=== PATIENT | male | born 1985 | race African-American/Black ===

== ENCOUNTER 2016-06-02 06:32 | Emergency (ER) | payer OTHER ==
[~2016-06-02 06:32] MED LIST: /ACETCOD2T PO; /PREG50CA PO; AMBI12.52 PO; ARTHTAB4 PO; CELE10TA PO; EMLA2.5C TOP; GABA250S PO; GABA300C2 PO; IBUP80TA PO; LIDO1DIS2 TD; LIDO1DIS2 TOP; LIDO2.5C17 EXT; LYRI75CA PO; META800T82 PO; NEUR300C PO; No Home Medications; PERC7.5T PO; SERO50TA PO; TIZA4TAB3 PO; TOPA25TA PO; VIST25CA PO
--- NOTE | 2016-06-02 07:30 | REPUSA ---
CLINICAL HISTORY: Head trauma. TECHNIQUE: Multiple axial brain CT scan sections were obtained from base to vertex without contrast a dministration. COMMENTS: There is no evidence of skull fracture. The study shows normal configuration of sella turcica. There are no intra or extra-axial collections. There is no mass effect or midline shift. There is no evidence of hematoma formation. No hydrocephal us is present. No abnormal calcifications are noted. No significant abnormalities are seen either in the posterior fossa or supratentorial compartment. The sinuses and mastoid air cells are patent. IMPRESSION: No change from the prior exam on 11/20/2012. No evidence of acute intracranial pathology. No intracranial hemorrhage or skull fracture. Thank you for your kind referral of this patient.
[2016-06-02] MEDS ORDERED: ONDANSETRON 4 MG TAB (S0181) As Ordered ONE (08:03)
[2016-06-02] MEDS ORDERED: ACETAMINOPHEN 325 MG TAB As Ordered ONE (08:03)
[2016-06-02] MEDS ORDERED: diphenhydrAMINE 25 MG CAP As Ordered ONE (08:03)
--- NOTE | 2016-06-02 08:14 | EDDOCDS ---
Physician Documentation [facility] Name: Jessica Bass Age: 31 yrs Sex: Male : 1985 Arrival Date: 06/02/2016 Time: 06:32 Bed 9 Private MD: Disposition: 06/02/16 07:48 Discharged to Home/Self Care. Impression: Contusion of unspecified part of head. - Condition is Stable. - Discharge Instructions: Concussion, Adult, [id number]. - Prescriptions for Fioricet 50- 300-40 mg Oral Capsule - take 1 capsule by ORAL route every 8 hours As needed MDD: 6 tabs; 10 capsule. - Medication Reconciliation, Local Pharmacy Hours form. - Follow up: Private Physician; When: Call to arrange an appointment; Reason: Recheck today's complaints. - Problem is new. - Symptoms have improved. Historical: - Allergies: Ibuprofen (Upset stomach); Tramadol HClInflames my stomach; - Home Meds: 1. none - PMHx: Anxiety; Chronic Back Pain r/t Spinal Injury; Depression; TBI; - PSHx: none; - Social history: Smoking status: Patient uses tobacco products, heavy tobacco smoker. No barriers to communication noted, The patient speaks fluent Lebanese, Speaks appropriately for age. - : The pt / caregiver states he / she is not on anticoagulants. Home medication list is obtained from the patient. - Exposure Risk Screening:: None identified. Vital Signs: 06/02 06:42 BP 150 / 78; Pulse 61; Resp 18; Temp 99.1(TE); Pulse Ox 100% on R/A; Weight 70.31 kg / nn1 155.01 lbs; Height 6 ft. 1 in. (185.42 cm); Pain 7/10; 07:58 BP 128 / 75; Pulse 64; Resp 18; Temp 98.0(O); Pulse Ox 100% on R/A; Pain 7/10; rn1 06:42 Body Mass Index 20.45 (70.31 kg, 185.42 cm) nn1 MDM: 06:57 Financial registration complete. hs2 06:57 [facility] Payment Agreement was scanned into [employer] and attached to record. hs2 07:00 CT Head Without Contrast Ordered. EDMS 07:47 Ondansetron 4 mg PO once ordered. fg 07:47 Acetaminophen Tablet 650 mg PO once ordered. fg 07:47 diphenhydrAMINE 25 mg PO once ordered. fg Administered Medications: 08:08 Drug: Ondansetron 4 mg [ondansetron HCl 4 mg tablet (1 tabs)] Route: PO; hs1 08:08 Drug: Acetaminophen 650 mg [acetaminophen 325 mg tablet (2 tabs)] Route: PO; hs1 08:08 Drug: diphenhydrAMINE 25 mg [diphenhydramine 25 mg capsule (1 caps)] Route: PO; hs1 Signatures: Dispatcher [employer] EDMT Ines Mathew RN RN hs1 James Holliday RN RN nn1 Donna Alex MD MD fg Stanton, Hillary, Reg Reg hs2 The chart was reviewed and I authenticate all verbal orders and agree with the evaluation and treatment provided.Attachments: 06:57 [facility] Payment Agreement hs2 MTDD
--- NOTE | 2016-06-02 08:14 | EDDOCDS ---
Nurse's Notes [facility] Name: Jessica Bass Age: 31 yrs Sex: Male : 1985 Arrival Date: 06/02/2016 Time: 06:32 Bed 9 Private MD: Diagnosis: Contusion of unspecified part of head Presentation: 06/02 06:37 Presenting complaint: Patient states: that at 1500 yesterday he was walking down steps nn1 and he hit head on ceiling. Patient reports his head began to bleed at that time, reports taking off scab at around 2000. States scab reappeared and he now has headache. Presenting complaint: Patient states: he was having dizzy spells last night at approximately 2300. This patient has no additional risk factors. Reports history of mild TBI. Adult Sepsis Screening: The patient does not have new or worsening altered mentation. Patient's respiratory rate is less than 22. Systolic blood pressure is greater than 100. Patient has a qSOFA score of 0- Negative Sepsis Screen. Suicide/Homicide risk assessment- the patient denies having any suicidal and/or homicidal ideations and does not present with any other emotional, behavioral or mental health complaints. 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 Transition of care: patient was not received from another setting of care. 06:37 Acuity: RAYMUNDO Level 3 nn1 06:37 Method Of Arrival: Walkin/Carried/Asstd nn1 Triage Assessment: 06:41 Headache History: Other Reports headache is similar to TBI. General: Appears in no nn1 apparent distress, comfortable, Behavior is appropriate for age, cooperative. Pain: Location: head Pain currently is 7 out of 10 on a pain scale. Quality of pain is described as shooting, throbbing, Pain began 12 hours ago Also complains of sleeplessness. HIV screening NA for this visit Offered previously. Neurological: Level of Consciousness is awake, alert, obeys commands, Oriented to person, place, time, Moves all extremities. Speech is normal. Respiratory: Airway is patent Respiratory effort is even, unlabored, Respiratory pattern is regular, symmetrical. Derm: Skin is pink, warm & dry. Historical: - Allergies: Ibuprofen (Upset stomach); Tramadol HClInflames my stomach; - Home Meds: 1. none - PMHx: Anxiety; Chronic Back Pain r/t Spinal Injury; Depression; TBI; - PSHx: none; - Social history: Smoking status: Patient uses tobacco products, heavy tobacco smoker. No barriers to communication noted, The patient speaks fluent Ivorian, Speaks appropriately for age. - : The pt / caregiver states he / she is not on anticoagulants. Home medication list is obtained from the patient. - Exposure Risk Screening:: None identified. Screenin:02 Screening information is obtained from the patient. Fall risk: No risks identified. tm5 Assistance ADL's: requires no assistance with activities of daily living. Abuse/DV Screen: The patient / caregiver reports he/she is: not in a situation that causes fear, pain or injury. Nutritional screening: No deficits noted. Advance Directives: There is no active DNR order. home support is adequate. Assessment: 07:41 General: Appears in no apparent distress, comfortable, Behavior is appropriate for age, hs1 cooperative. Pain: Location: headache Pain currently is 7 out of 10 on a pain scale. Pain: Quality of pain is described as aching, Pain began 1 day ago. Pain: Pain does not radiate. Also complains of no other associated symptoms. Derm: Skin is pink, warm & dry. normal. Injury Description: Abrasion sustained to scalp is scabbed. 08:09 Reassessment: Patient appears in no apparent distress at this time. Pt agreeable to hs1 discharge no needs noted. . Vital Signs: 06:42 BP 150 / 78; Pulse 61; Resp 18; Temp 99.1(TE); Pulse Ox 100% on R/A; Weight 70.31 kg; nn1 Height 6 ft. 1 in. (185.42 cm); Pain 7/10; 07:58 BP 128 / 75; Pulse 64; Resp 18; Temp 98.0(O); Pulse Ox 100% on R/A; Pain 7/10; rn1 06:42 Body Mass Index 20.45 (70.31 kg, 185.42 cm) nn1 Vitals: 06:40 Log In Time: June 02, 2016 at 06:34. nn1 ED Course: 06:33 Patient visited by Lida Chopra Reg. hs2 06:33 Patient moved to Waiting hs2 06:40 Triage Initiated nn1 06:44 Patient moved to 9 nn1 06:51 Leo King DO is Attending Physician. cs11 06:51 Patient visited by Leo King DO. cs11 06:57 [facility] Payment Agreement was scanned into [employer] and attached to record. hs2 07:[address] tm5 07:05 Patient visited by Jennifer Dick RN. tm5 07:[address] tm5 07:39 Patient visited by Ines Mathew RN. hs1 07:52 CT Head Without Contrast Returned. EDMS 08:09 No IV's were initiated during this patient's visit. No procedures done that require hs1 assistance. Administered Medications: 08:08 Drug: Ondansetron 4 mg [ondansetron HCl 4 mg tablet (1 tabs)] Route: PO; hs1 08:08 Drug: Acetaminophen 650 mg [acetaminophen 325 mg tablet (2 tabs)] Route: PO; hs1 08:08 Drug: diphenhydrAMINE 25 mg [diphenhydramine 25 mg capsule (1 caps)] Route: PO; hs1 Order Results: Radiology Order: CT Head Without Contrast Test: CT Head Without Contrast REASON FOR EXAMINATION: Trauma; ; CLINICAL HISTORY: Head trauma.; TECHNIQUE: Multiple axial brain CT scan sections were obtained from base to vertex without contrast a; dministration.; COMMENTS:; There is no evidence of skull fracture.; The study shows normal configuration of sella turcica. There are no intra or extra-axial collections.; There is no mass effect or midline shift. There is no evidence of hematoma formation. No hydrocephal; us is present. No abnormal calcifications are noted.; No significant abnormalities are seen either in the posterior fossa or supratentorial compartment.; The sinuses and mastoid air cells are patent.; IMPRESSION:; No change from the prior exam on 11/20/2012.; No evidence of acute intracranial pathology. No intracranial hemorrhage or skull fracture.; Thank you for your kind referral of this patient.; ; Outcome: 07:48 Discharge ordered by Provider. fg 08:10 Discharge Assessment: Patient awake, alert and oriented x 3. No cognitive and/or hs1 functional deficits noted. Patient verbalized understanding of disposition instructions. patient administered narcotics - no. The following High Risk Discharge criteria are identified: None. Discharged to home ambulatory, with friend. Condition: stable. Discharge instructions given to patient, Instructed on discharge instructions, follow up and referral plans. medication usage, Demonstrated understanding of instructions, medications, Pt was receptive of discharge instructions/ teaching. Prescriptions given X 1. CT Study completed. Property sent home with patient. 08:13 Patient left the ED. hs1 Signatures: Dispatcher [employer] EDVT Ines Mathew RN RN hs1 Leo King DO DO cs11 Krish Zaldivar rn1 James Holliday RN RN nn1 Donna Alex MD MD Lida Chopra, Reg Reg hs2 Jennifer Dick,RN RN tm5 MTDD
--- NOTE | 2016-06-04 09:14 | EDDOCDS ---
Nurse's Notes [facility] Name: Jessica Bass Age: 31 yrs Sex: Male : 1985 Arrival Date: 06/02/2016 Time: 06:32 Bed 9 Private MD: Diagnosis: Contusion of unspecified part of head Presentation: 06/02 06:37 Presenting complaint: Patient states: that at 1500 yesterday he was walking down steps nn1 and he hit head on ceiling. Patient reports his head began to bleed at that time, reports taking off scab at around 2000. States scab reappeared and he now has headache. Presenting complaint: Patient states: he was having dizzy spells last night at approximately 2300. This patient has no additional risk factors. Reports history of mild TBI. Adult Sepsis Screening: The patient does not have new or worsening altered mentation. Patient's respiratory rate is less than 22. Systolic blood pressure is greater than 100. Patient has a qSOFA score of 0- Negative Sepsis Screen. Suicide/Homicide risk assessment- the patient denies having any suicidal and/or homicidal ideations and does not present with any other emotional, behavioral or mental health complaints. 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 Transition of care: patient was not received from another setting of care. 06:37 Acuity: RAYMUNDO Level 3 nn1 06:37 Method Of Arrival: Walkin/Carried/Asstd nn1 Triage Assessment: 06:41 Headache History: Other Reports headache is similar to TBI. General: Appears in no nn1 apparent distress, comfortable, Behavior is appropriate for age, cooperative. Pain: Location: head Pain currently is 7 out of 10 on a pain scale. Quality of pain is described as shooting, throbbing, Pain began 12 hours ago Also complains of sleeplessness. HIV screening NA for this visit Offered previously. Neurological: Level of Consciousness is awake, alert, obeys commands, Oriented to person, place, time, Moves all extremities. Speech is normal. Respiratory: Airway is patent Respiratory effort is even, unlabored, Respiratory pattern is regular, symmetrical. Derm: Skin is pink, warm & dry. Historical: - Allergies: Ibuprofen (Upset stomach); Tramadol HClInflames my stomach; - Home Meds: 1. none - PMHx: Anxiety; Chronic Back Pain r/t Spinal Injury; Depression; TBI; - PSHx: none; - Social history: Smoking status: Patient uses tobacco products, heavy tobacco smoker. No barriers to communication noted, The patient speaks fluent Greek, Speaks appropriately for age. - : The pt / caregiver states he / she is not on anticoagulants. Home medication list is obtained from the patient. - Exposure Risk Screening:: None identified. Screenin:02 Screening information is obtained from the patient. Fall risk: No risks identified. tm5 Assistance ADL's: requires no assistance with activities of daily living. Abuse/DV Screen: The patient / caregiver reports he/she is: not in a situation that causes fear, pain or injury. Nutritional screening: No deficits noted. Advance Directives: There is no active DNR order. home support is adequate. Assessment: 07:41 General: Appears in no apparent distress, comfortable, Behavior is appropriate for age, hs1 cooperative. Pain: Location: headache Pain currently is 7 out of 10 on a pain scale. Pain: Quality of pain is described as aching, Pain began 1 day ago. Pain: Pain does not radiate. Also complains of no other associated symptoms. Derm: Skin is pink, warm & dry. normal. Injury Description: Abrasion sustained to scalp is scabbed. 08:09 Reassessment: Patient appears in no apparent distress at this time. Pt agreeable to hs1 discharge no needs noted. . Vital Signs: 06:42 BP 150 / 78; Pulse 61; Resp 18; Temp 99.1(TE); Pulse Ox 100% on R/A; Weight 70.31 kg; nn1 Height 6 ft. 1 in. (185.42 cm); Pain 7/10; 07:58 BP 128 / 75; Pulse 64; Resp 18; Temp 98.0(O); Pulse Ox 100% on R/A; Pain 7/10; rn1 06:42 Body Mass Index 20.45 (70.31 kg, 185.42 cm) nn1 Vitals: 06:40 Log In Time: June 02, 2016 at 06:34. nn1 ED Course: 06:33 Patient visited by Lida Chopra Reg. hs2 06:33 Patient moved to Waiting hs2 06:40 Triage Initiated nn1 06:44 Patient moved to 9 nn1 06:51 Leo King DO is Attending Physician. cs11 06:51 Patient visited by Leo King DO. cs11 06:57 [facility] Payment Agreement was scanned into [employer] and attached to record. hs2 07:[address] tm5 07:05 Patient visited by Jennifer Dick,MASON. tm5 07:[address]. tm5 07:39 Patient visited by Ines Mathew RN. hs1 07:52 CT Head Without Contrast Returned. EDMS 08:09 No IV's were initiated during this patient's visit. No procedures done that require hs1 assistance. 08:56 T-Sheet-- Draft Copy was scanned into [employer] and attached to record. [facility] 11:13 Radiology Report was scanned into [employer] and attached to record. gb Administered Medications: 08:08 Drug: Ondansetron 4 mg [ondansetron HCl 4 mg tablet (1 tabs)] Route: PO; hs1 08:08 Drug: Acetaminophen 650 mg [acetaminophen 325 mg tablet (2 tabs)] Route: PO; hs1 08:08 Drug: diphenhydrAMINE 25 mg [diphenhydramine 25 mg capsule (1 caps)] Route: PO; hs1 Order Results: Radiology Order: CT Head Without Contrast Test: CT Head Without Contrast REASON FOR EXAMINATION: Trauma; ; CLINICAL HISTORY: Head trauma.; TECHNIQUE: Multiple axial brain CT scan sections were obtained from base to vertex without contrast a; dministration.; COMMENTS:; There is no evidence of skull fracture.; The study shows normal configuration of sella turcica. There are no intra or extra-axial collections.; There is no mass effect or midline shift. There is no evidence of hematoma formation. No hydrocephal; us is present. No abnormal calcifications are noted.; No significant abnormalities are seen either in the posterior fossa or supratentorial compartment.; The sinuses and mastoid air cells are patent.; IMPRESSION:; No change from the prior exam on 11/20/2012.; No evidence of acute intracranial pathology. No intracranial hemorrhage or skull fracture.; Thank you for your kind referral of this patient.; ; Outcome: 07:48 Discharge ordered by Provider. fg 08:10 Discharge Assessment: Patient awake, alert and oriented x 3. No cognitive and/or hs1 functional deficits noted. Patient verbalized understanding of disposition instructions. patient administered narcotics - no. The following High Risk Discharge criteria are identified: None. Discharged to home ambulatory, with friend. Condition: stable. Discharge instructions given to patient, Instructed on discharge instructions, follow up and referral plans. medication usage, Demonstrated understanding of instructions, medications, Pt was receptive of discharge instructions/ teaching. Prescriptions given X 1. CT Study completed. Property sent home with patient. 08:13 Patient left the ED. hs1 Signatures: Dispatcher [employer] EDMS Maida Westfall, Reg Reg gb Ines Mathew RN RN hs1 Leo King, DO cs11 Krish Zaldivar rn1 James HollidayRN RN nn1 Donna Alex MD MD Lida Chopra, Reg Reg hs2 Khadijah Ponce TonyaRN RN tm5 Chart Complete [facility]
--- NOTE | 2016-06-04 09:14 | EDDOCDS ---
Physician Documentation [facility] Name: Jessica Bass Age: 31 yrs Sex: Male : 1985 Arrival Date: 06/02/2016 Time: 06:32 Bed 9 Private MD: Disposition: 06/02/16 07:48 Discharged to Home/Self Care. Impression: Contusion of unspecified part of head. - Condition is Stable. - Discharge Instructions: Concussion, Adult, [id number]. - Prescriptions for Fioricet 50- 300-40 mg Oral Capsule - take 1 capsule by ORAL route every 8 hours As needed MDD: 6 tabs; 10 capsule. - Medication Reconciliation, Local Pharmacy Hours form. - Follow up: Private Physician; When: Call to arrange an appointment; Reason: Recheck today's complaints. - Problem is new. - Symptoms have improved. Historical: - Allergies: Ibuprofen (Upset stomach); Tramadol HClInflames my stomach; - Home Meds: 1. none - PMHx: Anxiety; Chronic Back Pain r/t Spinal Injury; Depression; TBI; - PSHx: none; - Social history: Smoking status: Patient uses tobacco products, heavy tobacco smoker. No barriers to communication noted, The patient speaks fluent Wallisian, Speaks appropriately for age. - : The pt / caregiver states he / she is not on anticoagulants. Home medication list is obtained from the patient. - Exposure Risk Screening:: None identified. Vital Signs: 06/02 06:42 BP 150 / 78; Pulse 61; Resp 18; Temp 99.1(TE); Pulse Ox 100% on R/A; Weight 70.31 kg / nn1 155.01 lbs; Height 6 ft. 1 in. (185.42 cm); Pain 7/10; 07:58 BP 128 / 75; Pulse 64; Resp 18; Temp 98.0(O); Pulse Ox 100% on R/A; Pain 7/10; rn1 06:42 Body Mass Index 20.45 (70.31 kg, 185.42 cm) nn1 MDM: 06:57 Financial registration complete. hs2 06:57 [facility] Payment Agreement was scanned into [employer] and attached to record. hs2 07:00 CT Head Without Contrast Ordered. EDMS 07:47 Ondansetron 4 mg PO once ordered. fg 07:47 Acetaminophen Tablet 650 mg PO once ordered. fg 07:47 diphenhydrAMINE 25 mg PO once ordered. fg 08:56 T-Sheet-- Draft Copy was scanned into [employer] and attached to record. [facility] 11:13 Radiology Report was scanned into [employer] and attached to record. gb Administered Medications: 08:08 Drug: Ondansetron 4 mg [ondansetron HCl 4 mg tablet (1 tabs)] Route: PO; hs1 08:08 Drug: Acetaminophen 650 mg [acetaminophen 325 mg tablet (2 tabs)] Route: PO; hs1 08:08 Drug: diphenhydrAMINE 25 mg [diphenhydramine 25 mg capsule (1 caps)] Route: PO; hs1 Signatures: Dispatcher [employer] EDMS Maida Westfall, Reg Reg gb Ines Mathew RN RN hs1 James Holliday RN RN nn1 Donna Alex MD MD Lida Chopra, Reg Reg hs2 Khadijah Ponce The chart was reviewed and I authenticate all verbal orders and agree with the evaluation and treatment provided.Attachments: 06:57 [facility] Payment Agreement hs2 08:56 T-Sheet-- Draft Copy [facility] Chart Complete [facility]
--- NOTE | 2016-06-04 09:14 | EDDOCDS ---
Physician Documentation [facility] Name: Jessica Bass Age: 31 yrs Sex: Male : 1985 Arrival Date: 06/02/2016 Time: 06:32 Bed 9 Private MD: Disposition: 06/02/16 07:48 Discharged to Home/Self Care. Impression: Contusion of unspecified part of head. - Condition is Stable. - Discharge Instructions: Concussion, Adult, [id number]. - Prescriptions for Fioricet 50- 300-40 mg Oral Capsule - take 1 capsule by ORAL route every 8 hours As needed MDD: 6 tabs; 10 capsule. - Medication Reconciliation, Local Pharmacy Hours form. - Follow up: Private Physician; When: Call to arrange an appointment; Reason: Recheck today's complaints. - Problem is new. - Symptoms have improved. Historical: - Allergies: Ibuprofen (Upset stomach); Tramadol HClInflames my stomach; - Home Meds: 1. none - PMHx: Anxiety; Chronic Back Pain r/t Spinal Injury; Depression; TBI; - PSHx: none; - Social history: Smoking status: Patient uses tobacco products, heavy tobacco smoker. No barriers to communication noted, The patient speaks fluent Scottish, Speaks appropriately for age. - : The pt / caregiver states he / she is not on anticoagulants. Home medication list is obtained from the patient. - Exposure Risk Screening:: None identified. Vital Signs: 06/02 06:42 BP 150 / 78; Pulse 61; Resp 18; Temp 99.1(TE); Pulse Ox 100% on R/A; Weight 70.31 kg / nn1 155.01 lbs; Height 6 ft. 1 in. (185.42 cm); Pain 7/10; 07:58 BP 128 / 75; Pulse 64; Resp 18; Temp 98.0(O); Pulse Ox 100% on R/A; Pain 7/10; rn1 06:42 Body Mass Index 20.45 (70.31 kg, 185.42 cm) nn1 MDM: 06:57 Financial registration complete. hs2 06:57 [facility] Payment Agreement was scanned into [employer] and attached to record. hs2 07:00 CT Head Without Contrast Ordered. EDMS 07:47 Ondansetron 4 mg PO once ordered. fg 07:47 Acetaminophen Tablet 650 mg PO once ordered. fg 07:47 diphenhydrAMINE 25 mg PO once ordered. fg 08:56 T-Sheet-- Draft Copy was scanned into [employer] and attached to record. [facility] 11:13 Radiology Report was scanned into [employer] and attached to record. gb Administered Medications: 08:08 Drug: Ondansetron 4 mg [ondansetron HCl 4 mg tablet (1 tabs)] Route: PO; hs1 08:08 Drug: Acetaminophen 650 mg [acetaminophen 325 mg tablet (2 tabs)] Route: PO; hs1 08:08 Drug: diphenhydrAMINE 25 mg [diphenhydramine 25 mg capsule (1 caps)] Route: PO; hs1 Signatures: Dispatcher [employer] EDMS Maida Westfall, Reg Reg gb Ines Mathew RN RN hs1 James Holliday RN RN nn1 Donna Alex MD MD Lida Chopra, Reg Reg hs2 Khadijah Ponce The chart was reviewed and I authenticate all verbal orders and agree with the evaluation and treatment provided.Attachments: 06:57 [facility] Payment Agreement hs2 08:56 T-Sheet-- Draft Copy [facility] Chart Complete [facility]
== END 2016-06-02 08:13 | disposition home or self-care (01) ==
LOC: M ED 06:32
DX: S00.93XA Contusion of unspecified part of head, initial encounter (principal); W22.8XXA Striking against or struck by other objects, initial encounter; Y92.019 Unspecified place in single-family (private) house as the place of occurrence of the external cause; Y93.89 Activity, other specified; Y99.8 Other external cause status; F41.9 Anxiety disorder, unspecified; G89.29 Other chronic pain; F32.9 Major depressive disorder, single episode, unspecified; Z87.820 Personal history of traumatic brain injury; F17.200 Nicotine dependence, unspecified, uncomplicated; Z88.5 Allergy status to narcotic agent; Z88.6 Allergy status to analgesic agent

== ENCOUNTER 2016-07-04 13:38 | Emergency (ER) | payer OTHER ==
[~2016-07-04] VITALS: Ht 185.4 cm; Wt 70.3 kg
[2016-07-04 13:48] VITALS: BP 129/75
[2016-07-04] MEDS ORDERED: [UNRECOGNIZED DRUG - CODE] (13:52)
[2016-07-04] MEDS ORDERED: TYLE1TAB5 PO (13:52)
[2016-07-04] MEDS ORDERED: CLEO300C2 PO (14:38)
[2016-07-04] MEDS ORDERED: HYDR-3713 PO (14:39)
== END 2016-07-04 14:51 | disposition home or self-care (01) ==
LOC: M ED 14:49
DX: K08.9 Disorder of teeth and supporting structures, unspecified (principal); F17.210 Nicotine dependence, cigarettes, uncomplicated; Z88.6 Allergy status to analgesic agent; Z88.8 Allergy status to other drugs, medicaments and biological substances; Z79.899 Other long term (current) drug therapy; Z87.820 Personal history of traumatic brain injury; F41.9 Anxiety disorder, unspecified; F32.9 Major depressive disorder, single episode, unspecified

== ENCOUNTER 2016-09-22 13:56 | Emergency (ER) | payer OTHER ==
[~2016-09-22] VITALS: Ht 185.4 cm; Wt 68.9 kg
[~2016-09-22 13:56] MED LIST changes: +CLEO300C2 PO; +HYDR-3713 PO; +TYLE1TAB5 PO; +[UNRECOGNIZED DRUG - CODE]
[2016-09-22 13:57] VITALS: BP 123/76
[2016-09-22] MEDS ORDERED: GABA-283 PO (14:04)
[2016-09-22] MEDS ORDERED: NORCOTAB PO (14:28)
[2016-09-22] MEDS ORDERED: ROBA500T PO (14:30)
== END 2016-09-22 14:44 | disposition home or self-care (01) ==
LOC: M ED 14:41
DX: M50.80 Other cervical disc disorders, unspecified cervical region (principal); F41.9 Anxiety disorder, unspecified; F32.9 Major depressive disorder, single episode, unspecified; K52.9 Noninfective gastroenteritis and colitis, unspecified; Z87.820 Personal history of traumatic brain injury; Z88.5 Allergy status to narcotic agent; Z88.6 Allergy status to analgesic agent; Z79.899 Other long term (current) drug therapy

== ENCOUNTER 2016-10-08 16:11 | Emergency (ER) | payer OTHER ==
[~2016-10-08] VITALS: Ht 185.4 cm; Wt 70.3 kg
[~2016-10-08 16:11] MED LIST changes: +GABA-283 PO; +NORCOTAB PO; +ROBA500T PO
[2016-10-08 16:12] VITALS: BP 111/66
[2016-10-08] MEDS ORDERED: ZANA4TAB PO (17:06)
[2016-10-08] MEDS ORDERED: MEDR4PAK PO (17:06)
== END 2016-10-08 17:29 | disposition home or self-care (01) ==
LOC: M ED 17:18
DX: M54.9 Dorsalgia, unspecified (principal); G89.29 Other chronic pain

== ENCOUNTER 2016-11-25 15:59 | Emergency (ER) | payer OTHER ==
[~2016-11-25] VITALS: Ht 185.4 cm; Wt 62.0 kg
[2016-11-25 15:59] VITALS: BP 134/70
[~2016-11-25 15:59] MED LIST changes: +MEDR4PAK PO; +ZANA4TAB PO
[2016-11-25] MEDS ORDERED: AUGM875T28 PO (18:27)
[2016-11-25] MEDS ORDERED: NORCOTAB PO (18:27)
[2016-11-25] MEDS ORDERED: NORCO 5/325MG TABLET (BULK FOR ED) PO ONE (18:30)
[2017-03-13] MEDS ORDERED: NORC1TAB4 PO (18:19)
== END 2016-11-25 18:46 | disposition home or self-care (01) ==
LOC: M ED 15:59
DX: K02.9 Dental caries, unspecified (principal); F17.210 Nicotine dependence, cigarettes, uncomplicated; Z88.6 Allergy status to analgesic agent; Z88.5 Allergy status to narcotic agent

== ENCOUNTER 2017-01-26 11:09 | Emergency (ER) | payer OTHER ==
[~2017-01-26] VITALS: Ht 185.4 cm; Wt 68.2 kg
[2017-01-26 11:09] VITALS: BP 105/67
[~2017-01-26 11:09] MED LIST changes: +AUGM875T28 PO
[2017-01-26] MEDS ORDERED: CLEO300C2 PO (11:47)
[2017-01-26] MEDS ORDERED: NORCOTAB PO (11:47)
[2017-03-13] MEDS ORDERED: NORC1TAB4 PO (18:19)
== END 2017-01-26 11:56 | disposition home or self-care (01) ==
LOC: M ED 11:09
DX: K02.9 Dental caries, unspecified (principal); S02.5XXA Fracture of tooth (traumatic), initial encounter for closed fracture; X58.XXXA Exposure to other specified factors, initial encounter; Y92.89 Other specified places as the place of occurrence of the external cause; Y93.89 Activity, other specified; Y99.9 Unspecified external cause status

== ENCOUNTER 2017-02-09 13:24 | Emergency (ER) | payer OTHER ==
[~2017-02-09] VITALS: Ht 185.4 cm; Wt 68.2 kg
[2017-02-09] MEDS ORDERED: TYLE325T5 PO (14:04)
[2017-02-09] MEDS ORDERED: KETOROLAC 60 MG/2 ML VIAL (J1885) IM ONE (14:15)
[2017-02-09 14:33] VITALS: BP 137/76
[2017-02-10] MEDS ORDERED: HYDR-3713 PO (10:22)
[2017-03-13] MEDS ORDERED: NORC1TAB4 PO (18:19)
== END 2017-02-09 14:34 | disposition home or self-care (01) ==
LOC: M ED 13:24
DX: M54.2 Cervicalgia (principal); F41.9 Anxiety disorder, unspecified; F33.9 Major depressive disorder, recurrent, unspecified; K52.9 Noninfective gastroenteritis and colitis, unspecified; Z87.820 Personal history of traumatic brain injury; Z88.5 Allergy status to narcotic agent; Z88.8 Allergy status to other drugs, medicaments and biological substances; Z87.891 Personal history of nicotine dependence
CPT/HCPCS: 96372; 99282; J1885; J3360

== ENCOUNTER 2017-02-10 09:20 | Emergency (ER) | payer OTHER ==
[~2017-02-10] VITALS: Ht 185.4 cm; Wt 152.0 kg
[~2017-02-10 09:20] MED LIST changes: +TYLE325T5 PO
[2017-02-10] MEDS ORDERED: NORCO, ANEXSIA 5/325MG TABLET (HYDROcodone/ACETAMINOPHEN) PO ONE (09:45)
[2017-02-10] MEDS ORDERED: ONDANSETRON 4 MG ORAL DISINTEGRATING TAB (S0181) PO ONE (09:45)
[2017-02-10] MEDS ORDERED: HYDR-3713 PO (10:22)
[2017-02-10 10:51] VITALS: BP 105/63
--- NOTE | 2017-02-10 11:43 | REP ---
REASON: Neck pain. No history of trauma whatsoever has been given to me. No priors for comparison. Seven views were obtained. Multiple views of the cervical spine show some limitation of flexion and extension radiographically. Vertebra body height and alignment is within normal limits. Disc space height is symmetric throughout. The facet joints are well aligned bilaterally. The cervical lordotic curve is slightly accentuated. The intervertebral foramina are ample bilaterally and the neural canal is not encroached upon. There is no plain radiographic evidence of a fracture. IMPRESSION: Findings as described above. Correlate clinically for muscular spasm. The patient is cleared for CT of a fracture is of clinical concern. Signed by Kar Mendoza DO 02/10/2017 11:07 [facility]
[2017-03-13] MEDS ORDERED: NORC1TAB4 PO (18:19)
== END 2017-02-10 10:53 | disposition home or self-care (01) ==
LOC: M ED 09:20
DX: M54.2 Cervicalgia (principal); G89.29 Other chronic pain; Z87.891 Personal history of nicotine dependence

== ENCOUNTER 2017-02-19 10:27 | Emergency (ER) | payer OTHER ==
[~2017-02-19] VITALS: Ht 185.4 cm; Wt 68.2 kg
[2017-02-19 10:38] VITALS: BP 123/72
[2017-02-19] MEDS ORDERED: CLIN150C14 PO (11:04)
[2017-02-19] MEDS ORDERED: ACET30TAB PO (11:04)
[2017-03-13] MEDS ORDERED: NORC1TAB4 PO (18:19)
== END 2017-02-19 11:10 | disposition home or self-care (01) ==
LOC: M ED 10:27
DX: K04.7 Periapical abscess without sinus (principal); K03.81 Cracked tooth; Z88.6 Allergy status to analgesic agent; Z88.8 Allergy status to other drugs, medicaments and biological substances

== ENCOUNTER 2017-04-11 10:12 | Emergency (ER) | payer OTHER ==
[~2017-04-11] VITALS: Ht 185.4 cm; Wt 65.9 kg
[~2017-04-11 10:12] MED LIST changes: +ACET30TAB PO; +CLIN150C14 PO; +NORC1TAB4 PO
[2017-04-11 10:13] VITALS: BP 121/82
[2017-04-11] MEDS ORDERED: NORCOTAB PO (10:37)
[2017-04-11] MEDS ORDERED: AMOX500C PO (10:37)
== END 2017-04-11 10:51 | disposition home or self-care (01) ==
LOC: M ED 10:12
DX: K02.9 Dental caries, unspecified (principal); S02.5XXA Fracture of tooth (traumatic), initial encounter for closed fracture; X58.XXXA Exposure to other specified factors, initial encounter; Y92.89 Other specified places as the place of occurrence of the external cause; Y93.89 Activity, other specified; Y99.8 Other external cause status; F41.9 Anxiety disorder, unspecified; F33.9 Major depressive disorder, recurrent, unspecified; Z88.5 Allergy status to narcotic agent; Z88.8 Allergy status to other drugs, medicaments and biological substances

== ENCOUNTER 2017-04-23 11:36 | Emergency (ER) | payer OTHER ==
[~2017-04-23] VITALS: Ht 185.4 cm; Wt 68.2 kg
[~2017-04-23 11:36] MED LIST changes: +AMOX500C PO
[2017-04-23] MEDS ORDERED: CELE50CA PO (11:48)
[2017-04-23] MEDS ORDERED: TRAZ50TA11 PO (11:48)
[2017-04-23] MEDS ORDERED: NAPROXEN 250 MG TAB PO ONE (13:30)
--- NOTE | 2017-04-23 14:54 | REP ---
CT BRAIN WITHOUT IV CONTRAST: CT brain performed without IV contrast. Ventricles are normal in size and position. There is no midline shift. No abnormal densities are seen. Bailey-white differentiation is well maintained. There is no acute hemorrhage or extra-axial fluid collection. No skull fracture is seen. IMPRESSION: Negative noncontrast CT brain. Signed by Meño Bailey MD 04/23/2017 05:27 P
--- NOTE | 2017-04-23 15:03 | REP ---
CT CERVICAL SPINE: CT of the cervical spine performed in the axial plane with sagittal and coronal reconstruction images. There is no fracture or dislocation. Vertebral bodies normal in height and are well aligned with normal cervical lordosis. There is no prevertebral soft tissue swelling. Disc spaces are well preserved. Spinal canal demonstrates no evidence of narrowing. IMPRESSION: No fracture or dislocation. Signed by Meño Bailey MD 04/23/2017 05:27 P
[2017-04-23] MEDS ORDERED: NAPR500T PO (15:20)
[2017-04-23] MEDS ORDERED: CYCL10TA PO (15:20)
[2017-04-23 15:25] VITALS: BP 123/73
--- NOTE | 2017-04-24 15:07 | REP ---
LEFT SHOULDER, THREE VIEWS: There is no evidence of an acute fracture, dislocation or intrinsic bone disease. IMPRESSION: No fracture or dislocation. Signed by Meño Bailey MD 04/25/2017 08:22 P
--- NOTE | 2017-04-24 15:08 | REP ---
PELVIS AND LEFT HIP: AP view of the pelvis and two views of the left hip are performed and demonstrate no fracture, dislocation, or intrinsic bone disease. IMPRESSION: No evidence of acute fracture or dislocation. Signed by Meño Bailey MD 04/25/2017 08:22 P
== END 2017-04-23 15:30 | disposition home or self-care (01) ==
LOC: M ED 11:36
DX: Z04.1 Encounter for examination and observation following transport accident (principal); T14.8XXA Other injury of unspecified body region, initial encounter; V89.9XXA Person injured in unspecified vehicle accident, initial encounter; Y92.410 Unspecified street and highway as the place of occurrence of the external cause; Y93.89 Activity, other specified; Y99.8 Other external cause status; Z88.5 Allergy status to narcotic agent; Z88.8 Allergy status to other drugs, medicaments and biological substances

== ENCOUNTER 2017-08-21 14:02 | Emergency (ER) | payer OTHER | END 2017-08-21 15:55 | disposition home or self-care (01) | LOC: M ED 14:02 | DX: K05.6 Periodontal disease, unspecified (principal); K02.9 Dental caries, unspecified; M54.9 Dorsalgia, unspecified; G89.29 Other chronic pain; F17.200 Nicotine dependence, unspecified, uncomplicated | CPT/HCPCS: 99282 ==

== ENCOUNTER 2017-09-20 11:55 | Emergency (ER) | payer OTHER | END 2017-09-20 14:26 | disposition home or self-care (01) | LOC: M ED 11:55 | DX: K02.9 Dental caries, unspecified (principal); K08.89 Other specified disorders of teeth and supporting structures; Z87.891 Personal history of nicotine dependence; Z88.8 Allergy status to other drugs, medicaments and biological substances; Z88.5 Allergy status to narcotic agent | CPT/HCPCS: 99283 ==

== ENCOUNTER 2017-10-19 08:11 | Emergency (ER) | payer OTHER | END 2017-10-19 09:30 | disposition home or self-care (01) | LOC: M ED 08:11 | DX: G89.29 Other chronic pain (principal); M54.41 Lumbago with sciatica, right side; Z87.820 Personal history of traumatic brain injury; Z79.891 Long term (current) use of opiate analgesic; Z79.899 Other long term (current) drug therapy; Z88.5 Allergy status to narcotic agent; Z88.6 Allergy status to analgesic agent | CPT/HCPCS: 99283 ==

== ENCOUNTER 2017-10-26 10:56 | Emergency (ER) | payer OTHER | END 2017-10-26 12:22 | disposition home or self-care (01) | LOC: M ED 10:56 | DX: Z76.0 Encounter for issue of repeat prescription (principal); G89.29 Other chronic pain; M54.5 Low back pain; Z88.6 Allergy status to analgesic agent | CPT/HCPCS: 99282 ==

== ENCOUNTER 2018-02-17 11:33 | Emergency (ER) | payer OTHER ==
[2018-02-17] MEDS: PERCOCET 5MG/325MG TAB PO (12:31)
== END 2018-02-17 12:34 | disposition home or self-care (01) ==
LOC: M ED 11:33
DX: K02.9 Dental caries, unspecified (principal); S02.5XXA Fracture of tooth (traumatic), initial encounter for closed fracture; X58.XXXA Exposure to other specified factors, initial encounter; Y92.89 Other specified places as the place of occurrence of the external cause; F41.9 Anxiety disorder, unspecified; F33.9 Major depressive disorder, recurrent, unspecified; Z88.5 Allergy status to narcotic agent; Z88.8 Allergy status to other drugs, medicaments and biological substances; F17.210 Nicotine dependence, cigarettes, uncomplicated
CPT/HCPCS: 99282

== ENCOUNTER 2018-03-22 12:32 | Emergency (ER) | payer OTHER | END 2018-03-22 14:20 | disposition home or self-care (01) | LOC: M ED 12:32 | DX: Z87.891 Personal history of nicotine dependence (principal); K02.7 Dental root caries; K04.7 Periapical abscess without sinus; Z88.8 Allergy status to other drugs, medicaments and biological substances; Z88.5 Allergy status to narcotic agent | CPT/HCPCS: 99282 ==

== ENCOUNTER 2018-05-07 10:39 | Emergency (ER) | payer OTHER ==
[~2018-05-07] VITALS: Ht 185.4 cm; Wt 70.5 kg
[~2018-05-07 10:39] MED LIST changes: +AMOX875T2 PO; +CELE50CA PO; +CYCL10TA PO; -GABA-283 PO; +GABA-843; +GABA-845 PO; +KLON0.5T PO; +LIDO5DIS41 TOP; +NAPR-50 PO; +OXYC15TA76 PO; +PERC5TAB12 PO; +TIZA4CAP; +TRAZ-160 PO
[2018-05-07 10:40] VITALS: BP 119/72
[2018-05-07] MEDS ORDERED: ACET-683 PO (10:45)
[2018-05-07] MEDS ORDERED: NORCO, ANEXSIA 5/325MG TABLET (HYDROcodone/ACETAMINOPHEN) PO ONE (11:00)
[2018-05-07] MEDS ORDERED: AUGMENTIN 875 MG TAB PO ONE (11:00)
[2018-05-07] MEDS ORDERED: AUGM875T28 PO (11:06)
[2018-05-07] MEDS ORDERED: NORCOTAB PO (11:06)
[2018-05-07] MEDS ORDERED: PERI0.126 PO (11:06)
== END 2018-05-07 11:15 | disposition home or self-care (01) ==
LOC: M ED 10:39
DX: K04.7 Periapical abscess without sinus (principal); K02.9 Dental caries, unspecified; R68.84 Jaw pain

== ENCOUNTER 2018-05-13 10:22 | Emergency (ER) | payer OTHER ==
[~2018-05-13] VITALS: Ht 185.4 cm; Wt 68.2 kg
[~2018-05-13 10:22] MED LIST changes: +ACET-683 PO; +PERI0.126 PO
[2018-05-13 10:23] VITALS: BP 135/75
[2018-05-13] MEDS ORDERED: LIDO1SOL7 PO (10:57)
[2018-05-13] MEDS ORDERED: PERCOCET 5MG/325MG TAB PO ONE (11:00)
== END 2018-05-13 11:08 | disposition home or self-care (01) ==
LOC: M ED 10:22
DX: S02.5XXA Fracture of tooth (traumatic), initial encounter for closed fracture (principal); X58.XXXA Exposure to other specified factors, initial encounter; Y92.89 Other specified places as the place of occurrence of the external cause; K08.89 Other specified disorders of teeth and supporting structures; K02.9 Dental caries, unspecified; F43.10 Post-traumatic stress disorder, unspecified; F41.9 Anxiety disorder, unspecified; Z88.5 Allergy status to narcotic agent; Z88.8 Allergy status to other drugs, medicaments and biological substances

== ENCOUNTER 2018-05-20 19:16 | Emergency (ER) | payer OTHER ==
[~2018-05-20] VITALS: Ht 185.4 cm; Wt 68.2 kg
[~2018-05-20 19:16] MED LIST changes: +LIDO1SOL7 PO
[2018-05-20 19:47] VITALS: BP 128/64
== END 2018-05-20 20:08 | disposition home or self-care (01) ==
LOC: M ED 19:16
DX: F41.9 Anxiety disorder, unspecified (principal); Z87.820 Personal history of traumatic brain injury; Z88.5 Allergy status to narcotic agent; Z88.8 Allergy status to other drugs, medicaments and biological substances

== ENCOUNTER 2018-06-28 11:55 | Emergency (ER) | payer OTHER ==
[~2018-06-28] VITALS: Ht 185.4 cm; Wt 68.6 kg
[2018-06-28 11:55] VITALS: BP 142/75
[2018-06-28] MEDS ORDERED: ACET-683 PO (12:00)
[2018-06-28] MEDS ORDERED: CLINDAMYCIN 150 MG CAP PO ONE (13:00)
[2018-06-28] MEDS ORDERED: PERCOCET 5MG/325MG TAB PO ONE (13:00)
[2018-06-28] MEDS ORDERED: CLEO300C2 PO (13:01)
== END 2018-06-28 13:07 | disposition home or self-care (01) ==
LOC: M ED 11:55
DX: K02.9 Dental caries, unspecified (principal); K08.89 Other specified disorders of teeth and supporting structures; Z72.0 Tobacco use; Z88.6 Allergy status to analgesic agent; Z88.5 Allergy status to narcotic agent

== ENCOUNTER 2018-08-14 09:28 | Emergency (ER) | payer OTHER ==
[~2018-08-14] VITALS: Ht 185.4 cm; Wt 69.1 kg
[2018-08-14 09:28] VITALS: BP 125/75
[~2018-08-14 09:28] MED LIST changes: -/ACETCOD2T PO; -/PREG50CA PO; +ACET-716 PO; +ACET1TAB15 PO; -ACET30TAB PO; +HYDR-3715 PO; -LIDO1SOL7 PO; +LIDO1SOL8 PO; +LYRI50CA PO; -NAPR-50 PO; +NAPR-837 PO; -NORC1TAB4 PO; +NORC1TAB7 PO; -NORCOTAB PO
[2018-08-14] MEDS ORDERED: LIDO2SOL9 PO (10:08)
== END 2018-08-14 10:18 | disposition home or self-care (01) ==
LOC: M ED 09:28
DX: K08.89 Other specified disorders of teeth and supporting structures (principal); K03.81 Cracked tooth; Z88.8 Allergy status to other drugs, medicaments and biological substances

== ENCOUNTER 2018-09-07 12:26 | Emergency (ER) | payer OTHER ==
[~2018-09-07] VITALS: Ht 185.4 cm; Wt 66.0 kg
[2018-09-07 12:26] VITALS: BP 136/81
[~2018-09-07 12:26] MED LIST changes: +LIDO2SOL9 PO
[2018-09-07] MEDS ORDERED: LIDOCAINE 2% W/EPIN INJ 20ML **PRES FREE INJ ONE (13:30)
[2018-09-07] MEDS ORDERED: CLIN150C14 PO (13:31)
== END 2018-09-07 13:50 | disposition home or self-care (01) ==
LOC: M ED 12:26
DX: K02.9 Dental caries, unspecified (principal); K05.10 Chronic gingivitis, plaque induced; K05.329 Chronic periodontitis, generalized, unspecified severity; Z88.5 Allergy status to narcotic agent; Z88.8 Allergy status to other drugs, medicaments and biological substances; F17.210 Nicotine dependence, cigarettes, uncomplicated

== ENCOUNTER 2021-08-21 06:30 | Emergency (ER) | payer OTHER ==
[~2021-08-21] VITALS: Ht 185.4 cm; Wt 65.9 kg
[~2021-08-21 06:30] MED LIST changes: -CLIN150C14 PO; +CLIN150C17 PO; +CYCL-707 PO; -CYCL10TA PO; +GABA-282; +GABA-283 PO; -GABA-843; -GABA-845 PO; -LIDO1SOL8 PO; +LIDO2SOL17 PO; +OXYC-1 PO; -OXYC15TA76 PO; -TRAZ-160 PO; +TRAZ-252 PO
[2021-08-21] MEDS ORDERED: SUBO8MIS SL (06:47)
[2021-08-21] MEDS ORDERED: dexameTHASONE 20MG/5ML VIAL (J1100 PER 1MG) IV ONE (07:30)
[2021-08-21] MEDS ORDERED: NS 1,000 ML IV ONE (07:30)
[2021-08-21] MEDS ORDERED: KETOROLAC 30 MG/ML 1ML VIAL IV ONE (07:30)
[2021-08-21] MEDS ORDERED: AMPICILLIN SOD/SULBACTAM SOD 3 GM in D5W MINI-BAG PLUS 100 ML IV ONE (07:30)
[2021-08-21 07:52] LABS: BASO % 0.3 % (0.0-1.0); EOS # 0.2 10^3/uL (0.0-0.5); EOS % 2.1 % (0.0-3.0); HEMATOCRIT 43.6 % (42.0-52.0); HEMOGLOBIN 14.3 g/dl (13.5-17.5); LYMPH # 2.1 10^3/uL (1.5-5.0); LYMPH % 30.1 % (24.0-44.0); MEAN CORPUSCULAR HEMOGLOBIN 30.3 pg (27.0-33.0); MEAN CORPUSCULAR HGB CONC 32.8 g/dl (32.0-36.5); MEAN CORPUSCULAR VOLUME 92.4 fl (80.0-96.0); MONO # 0.9 10^3/uL (0.0-0.8); MONO % 12.7 % (2.0-8.0); NEUTROPHILS # 3.9 10^3/uL (1.5-8.5); NEUTROPHILS % 54.7 % (36.0-66.0); PLATELET COUNT, AUTOMATED 205 10^3/uL (150-450); RED BLOOD COUNT 4.72 10^6/uL (4.30-6.10); WHITE BLOOD COUNT 7.1 10^3/uL (4.0-10.0)
[2021-08-21] MEDS ORDERED: ISOVUE-370 76% 100ML VIAL As Ordered ONE (08:02)
[2021-08-21 08:18] LABS: ERYTHROCYTE SEDIMENTATION RATE 4 mm/hr (0-15)
[2021-08-21] MEDS ORDERED: IBUP-1022 PO (09:48)
[2021-08-21] MEDS ORDERED: AMOX875T2 PO (09:48)
[2021-08-21 10:22] VITALS: BP 138/70
== END 2021-08-21 10:29 | disposition home or self-care (01) ==
LOC: M ED 06:30
DX: K02.9 Dental caries, unspecified (principal); L03.211 Cellulitis of face; Z88.5 Allergy status to narcotic agent; Z79.891 Long term (current) use of opiate analgesic; F17.210 Nicotine dependence, cigarettes, uncomplicated
CPT/HCPCS: 70487; 80047; 85025; 85652; 86140; 96361; 96374; 96375; 99284; J0295; J1100; J1885; Q9967

== ENCOUNTER 2025-02-14 07:09 | Emergency (ER) | payer OTHER ==
[~2025-02-14] VITALS: Ht 185.4 cm; Wt 69.7 kg
[~2025-02-14 07:09] MED LIST changes: -CELE50CA PO; +CELE50CA17 PO; +GABA-1172; -GABA-282; -GABA-283 PO; +GABA-284 PO; +IBUP600T42 PO; -KLON0.5T PO; +KLON0.5T8 PO; +LIDO100S29 PO; +LIDO15SO8 PO; +LIDO1ADH93 TOP; -LIDO2SOL17 PO; -LIDO2SOL9 PO; -LIDO5DIS41 TOP; +SUBO8MIS SL
[2025-02-14 07:11] VITALS: BP 137/42; TEMP 98.2; O2SAT 100
[2025-02-14] MEDS ORDERED: AMPH1CAP5 (07:23)
[2025-02-14] MEDS ORDERED: AMOX875T2 PO (08:36)
== END 2025-02-14 08:49 | disposition home or self-care (01) ==
LOC: M ED 07:09
DX: K02.9 Dental caries, unspecified (principal); R68.84 Jaw pain; Z87.820 Personal history of traumatic brain injury